=== PATIENT | female | born 1930 | race Caucasian/White ===

== ENCOUNTER 2017-06-04 09:38 | Outpatient (CLI) | payer MEDICARE, OTHER ==
[2017-06-04 09:36] VITALS: BP 140/69
[~2017-06-04 09:38] MED LIST: DONE5TAB26 PO; HYDR-3965 PO; LEVO137T24 PO; MEMA10TA PO; NEBI2.5T3 PO; SERT100T PO; SIMV10TA2 PO; TRAZ-143 PO
[2017-06-04 09:57] VITALS: BP 140/69
== END 2017-06-04 10:47 | disposition home or self-care (01) ==
LOC: ORTHO 09:38
PROVIDERS: ATTEND Nurse Practitioner Family
DX: S72.002A Fracture of unspecified part of neck of left femur, initial encounter for closed fracture (principal); S42.201A Unspecified fracture of upper end of right humerus, initial encounter for closed fracture; F32.9 Major depressive disorder, single episode, unspecified; I10 Essential (primary) hypertension; M19.90 Unspecified osteoarthritis, unspecified site; Z85.3 Personal history of malignant neoplasm of breast; Z96.642 Presence of left artificial hip joint; X58.XXXA Exposure to other specified factors, initial encounter; Y93.89 Activity, other specified; Y92.89 Other specified places as the place of occurrence of the external cause; Y99.8 Other external cause status
CPT/HCPCS: 73060; 73502

== ENCOUNTER 2017-07-01 13:04 | Outpatient (CLI) | payer MEDICARE, OTHER | END 2017-07-01 14:05 | disposition home or self-care (01) | LOC: ORTHO 13:04 | PROVIDERS: ATTEND Nurse Practitioner Family | DX: S42.201G Unspecified fracture of upper end of right humerus, subsequent encounter for fracture with delayed healing (principal); F32.9 Major depressive disorder, single episode, unspecified; I10 Essential (primary) hypertension; M19.90 Unspecified osteoarthritis, unspecified site; Z85.3 Personal history of malignant neoplasm of breast; Z88.8 Allergy status to other drugs, medicaments and biological substances; X58.XXXD Exposure to other specified factors, subsequent encounter | CPT/HCPCS: 73060; 99212 ==

== ENCOUNTER 2017-07-31 11:27 | Outpatient (CLI) | payer MEDICARE, OTHER ==
[2017-07-31 11:31] VITALS: BP 110/54
== END 2017-07-31 12:30 | disposition home or self-care (01) ==
LOC: ORTHO 11:27
PROVIDERS: ATTEND Nurse Practitioner Family
DX: S42.291G Other displaced fracture of upper end of right humerus, subsequent encounter for fracture with delayed healing (principal); S72.002D Fracture of unspecified part of neck of left femur, subsequent encounter for closed fracture with routine healing; M19.90 Unspecified osteoarthritis, unspecified site; M19.011 Primary osteoarthritis, right shoulder; F32.9 Major depressive disorder, single episode, unspecified; I10 Essential (primary) hypertension; Z85.3 Personal history of malignant neoplasm of breast; Z88.1 Allergy status to other antibiotic agents; Z88.5 Allergy status to narcotic agent; X58.XXXD Exposure to other specified factors, subsequent encounter
CPT/HCPCS: 73060; 73502; 99213

== ENCOUNTER 2017-12-24 10:47 | Outpatient (CLI) | payer MEDICARE, OTHER ==
[2017-12-24 10:45] VITALS: BP 139/77
[~2017-12-24 10:47] MED LIST changes: -TRAZ-143 PO; +TRAZ-218 PO
== END 2017-12-24 11:26 | disposition home or self-care (01) ==
LOC: ORTHO 10:47
PROVIDERS: ATTEND Nurse Practitioner Family
DX: Z47.1 Aftercare following joint replacement surgery (principal); S42.201G Unspecified fracture of upper end of right humerus, subsequent encounter for fracture with delayed healing; I10 Essential (primary) hypertension; F32.9 Major depressive disorder, single episode, unspecified; Z85.3 Personal history of malignant neoplasm of breast; Z88.1 Allergy status to other antibiotic agents; Z88.8 Allergy status to other drugs, medicaments and biological substances; Z90.710 Acquired absence of both cervix and uterus; Z96.642 Presence of left artificial hip joint; W01.0XXD Fall on same level from slipping, tripping and stumbling without subsequent striking against object, subsequent encounter
CPT/HCPCS: 73060; 73502; 99213